=== PATIENT | female | born 1980 | race Two or more races ===

== ENCOUNTER 2017-02-24 01:08 | Emergency (ER) | payer OTHER ==
[~2017-02-24] VITALS: Ht 162.6 cm; Wt 68.0 kg
[2017-02-24 01:15] VITALS: BP 168/98
[2017-02-24] MEDS ORDERED: ALBUTEROL SULF 2.5 MG/0.5ML(0.5%) NEB SOLN NEB ONE (01:15)
[2017-02-24] MEDS ORDERED: IPRATROPIUM BROM 0.5 MG/2.5ML INH SOL NEB ONE (01:15)
== END 2017-02-24 05:20 | disposition left against medical advice (07) ==
LOC: ER 01:08
DX: R06.02 Shortness of breath (principal); Z53.21 Procedure and treatment not carried out due to patient leaving prior to being seen by health care provider
CPT/HCPCS: 71010; 94640